=== PATIENT | male | born 1980 | race Caucasian/White ===

== ENCOUNTER 2024-08-06 21:00 | Day surgery (SDC) | payer BC ==
[2024-08-06] MEDS ORDERED: Sodium Chloride 0.9% 10 ML Syringe FLUSH PRN (21:22)
[2024-08-06] MEDS: Glucagon,Human Recombinant 1 MG Vial IVPUSH ONE (21:38)
[2024-08-06] MEDS ORDERED: fentaNYL 250 MCG/5 ML SDV ONE (23:25)
[2024-08-06] MEDS ORDERED: Midazolam 1 MG/ML 2 ML SDV ONE (23:25)
[2024-08-06] MEDS ORDERED: Propofol 200 MG/20 ML SDV ONE ×2 (23:25→23:44)
[2024-08-06] MEDS ORDERED: Succinylcholine 200 MG/10 ML MDV ONE (23:25)
[2024-08-06] MEDS ORDERED: Ondansetron 4 MG/2 ML SDV ONE (23:25)
[2024-08-06] MEDS ORDERED: Lidocaine 1% 4 ML ONE (23:26)
[2024-08-07] MEDS ORDERED: Dexamethasone 4 MG/ML SDV ONE (00:01)
[2024-08-07] MEDS ORDERED: Ondansetron 4 MG/2 ML SDV IVPUSH PRN (00:02)
[2024-08-07] MEDS ORDERED: HYDROmorphone 0.5 MG/0.5 ML Syringe IVPUSH PRN (00:02)
[2024-08-07] MEDS ORDERED: fentaNYL 100 MCG/2 ML SDV IVPUSH PRN (00:02)
[2024-08-07] MEDS ORDERED: droPERidol 5 MG/2 ML SDV IVPUSH PRN (00:02)
[2024-08-07 00:50] VITALS: BP 153/76; PULSE 80
== END 2024-08-07 01:03 ==
LOC: JD.ED 21:00 → JD.SDS 23:14
PROVIDERS: ATTEND Surgery
DX: T18.128A Food in esophagus causing other injury, initial encounter (principal); K20.0 Eosinophilic esophagitis; E66.9 Obesity, unspecified; Z68.30 Body mass index [BMI] 30.0-30.9, adult
CPT/HCPCS: 43247; J0330; J1100; J1610; J2250; J2405; J2704; J3010; J3490